=== PATIENT | male | born 2000 | race African-American/Black ===

== ENCOUNTER 2021-04-01 22:53 | Emergency (ER) | payer OTHER ==
[~2021-04-01] VITALS: Ht 167.6 cm; Wt 105.0 kg
[2021-04-01 23:48] LABS: COVID AG,FIA SOURCE NASAL SWAB
[2021-04-02 00:10] LABS: INFLUENZA TYPE A NEGATIVE FOR TYPE A (NEGATIVE); INFLUENZA TYPE B NEGATIVE FOR TYPE B (NEGATIVE)
[2021-04-02 01:44] VITALS: BP 132/75
== END 2021-04-02 01:54 | disposition home or self-care (01) ==
LOC: EDBD 22:55 → EMS 22:55
DX: J02.9 Acute pharyngitis, unspecified (principal); F12.90 Cannabis use, unspecified, uncomplicated; Z88.0 Allergy status to penicillin; Z20.822 Contact with and (suspected) exposure to COVID-19
CPT/HCPCS: 87430; 87804; 99283